=== PATIENT | female | born 1950 | race Caucasian/White ===

== ENCOUNTER 2024-04-14 19:59 | Inpatient (IN) | payer MEDICARE, OTHER ==
[~2024-04-14] VITALS: Ht 157.5 cm; Wt 64.0 kg
[2024-04-14] MEDS: KETOROLAC 30MG/ML VIAL IM ONE (20:15)
[2024-04-14] MEDS: HYDROCODONE/ACETAMINOPHEN 5/325MG TABLET PO ONE (20:15)
[2024-04-14] MEDS ORDERED: IBUP-2029 MT (22:10)
[2024-04-14] MEDS: HYDROCODONE/ACETAMINOPHEN 5/325MG TABLET PO SCH (22:49)
[2024-04-14] MEDS: KETOROLAC 30MG/ML VIAL IM SCH (22:49)
[2024-04-15 00:34] LABS: BASOPHILS % 0.9 % (0.0-2.0); EOSINOPHILS % 2.2 % (0.0-5.0); HEMATOCRIT. 34.3 % (36.0-48.0); HEMOGLOBIN. 11.5 g/dL (12.0-16.0); LYMPHOCYTES % 28.6 % (20.0-50.0); MEAN CORPUSCULAR HEMOGLOBIN 29.3 pg (28.0-32.0); MEAN CORPUSCULAR HGB CONC 33.5 g/dL (31.0-37.0); MEAN CORPUSCULAR VOLUME 87.7 fL (81.0-99.0); MEAN PLATELET VOLUME 8.2 fl (7.4-10.4); MONOCYTES % 8.7 % (2.0-8.0); NEUTROPHILS % 59.6 % (40.0-76.0); PLATELET 253 x1000/uL (130-400); RED BLOOD CELL COUNT 3.91 mill/uL (4.2-5.4); RED CELL DISTRIBUTION WIDTH 15.1 % (11.6-14.6); WHITE BLOOD COUNT 7.9 x1000/uL (4.5-11.0)
[2024-04-15 00:51] LABS: CHLORIDE 108 mEq/L (98-107); POTASSIUM 3.5 mEq/L (3.5-5.1); SODIUM 143 mEq/L (136-145)
[2024-04-15 00:52] LABS: CARBON DIOXIDE 29 mEq/L (21-32)
[2024-04-15 00:57] LABS: CREATININE 0.7 mg/dL (0.6-1.0); GLUCOSE 126 mg/dL (70-105); UREA NITROGEN BLOOD 8 mg/dL (9-23)
[2024-04-15 01:42] LABS: PROTHROMBIN TIME 10.9 sec (9.6-11.0)
[2024-04-15] MEDS ORDERED: ONDANSETRON HCL 4MG/2ML INJ IV PRN (02:15)
[2024-04-15] MEDS ORDERED: CLONIDINE 0.1MG TABLET PO PRN (02:15)
[2024-04-15] MEDS ORDERED: DEXTROSE 50% WATER 50ML SYRINGE IV PRN (02:15)
[2024-04-15] MEDS ORDERED: IPRATROPIUM/ALBUTEROL 0.5-3(2.5)MG/3ML NEB HHN PRN (02:15)
[2024-04-15] MEDS ORDERED: MAGNESIUM/ALUMINUM HYDROXIDE/SIMETHICONE 30ML UDC PO PRN (02:15)
[2024-04-15] MEDS: METOPROLOL SUCCINATE 50MG ER TABLET PO SCH (02:30)
[2024-04-15] MEDS: EMPAGLIFLOZIN 10MG TABLET PO SCH (09:00)
[2024-04-15 10:16] VITALS: BP 138/84; PULSE 75; RESP 18; TEMP 36.8
[2024-04-15] MEDS: INSULIN LISPRO 100 UNITS/ML SUBCUT SCH (12:37)
[2024-04-15] MEDS: BLOOD SUGAR DIAGNOSTIC STRIP TEST SCH (12:37)
[2024-04-15] MEDS: HYDROCODONE/ACETAMINOPHEN 5/325MG TABLET PO PRN (13:54)
[2024-04-15 19:05] LABS: BASOPHILS % 1.1 % (0.0-2.0); EOSINOPHILS % 2.3 % (0.0-5.0); HEMATOCRIT. 34.2 % (36.0-48.0); HEMOGLOBIN. 11.1 g/dL (12.0-16.0); LYMPHOCYTES % 29.6 % (20.0-50.0); MEAN CORPUSCULAR HEMOGLOBIN 28.9 pg (28.0-32.0); MEAN CORPUSCULAR HGB CONC 32.6 g/dL (31.0-37.0); MEAN CORPUSCULAR VOLUME 88.7 fL (81.0-99.0); MEAN PLATELET VOLUME 8.7 fl (7.4-10.4); MONOCYTES % 9.2 % (2.0-8.0); NEUTROPHILS % 57.8 % (40.0-76.0); PLATELET 253 x1000/uL (130-400); RED BLOOD CELL COUNT 3.85 mill/uL (4.2-5.4); RED CELL DISTRIBUTION WIDTH 15.2 % (11.6-14.6); WHITE BLOOD COUNT 6.7 x1000/uL (4.5-11.0)
[2024-04-15 19:08] LABS: CHLORIDE 107 mEq/L (98-107); POTASSIUM 3.6 mEq/L (3.5-5.1); SODIUM 143 mEq/L (136-145)
[2024-04-15 19:09] LABS: CARBON DIOXIDE 27 mEq/L (21-32)
[2024-04-15 19:10] LABS: CALCIUM 9.1 mg/dL (8.7-10.4)
[2024-04-15 19:14] LABS: CREATININE 0.8 mg/dL (0.6-1.0); GLUCOSE 159 mg/dL (70-105); UREA NITROGEN BLOOD 11 mg/dL (9-23)
[2024-04-15 19:16] LABS: CREATINE KINASE 72 IU/L (34-145)
[2024-04-15 19:20] LABS: THYROID STIMULATING HORMONE 1.12 uIU/mL (0.55-4.78)
[2024-04-15 20:00] VITALS: BP 115/63; PULSE 88; RESP 18; TEMP 36; O2SAT 97
[2024-04-15] MEDS: FAMOTIDINE 20MG TABLET PO SCH (20:32)
[2024-04-15] MEDS: ATORVASTATIN CALCIUM 40MG TABLET PO SCH (20:33)
[2024-04-15] MEDS: ACETAMINOPHEN 325MG TABLET PO PRN (20:33)
[2024-04-15] MEDS: INSULIN GLARGINE 100 UNITS/ML SUBCUT SCH (21:21)
[2024-04-16] VITALS: BP 129/64; PULSE 82; RESP 18; TEMP 36.3; O2SAT 97
[2024-04-16 00:03] LABS: CREATINE KINASE 66 IU/L (34-145)
[2024-04-16 04:00] VITALS: BP 126/62; PULSE 85; RESP 20; TEMP 35.7; O2SAT 95
[2024-04-16 08:00] VITALS: BP 144/68; PULSE 81; RESP 19; TEMP 36.4; O2SAT 97
[2024-04-16 12:00] VITALS: BP 140/70; PULSE 80; RESP 18; TEMP 36.3; O2SAT 96
[2024-04-16 16:00] VITALS: BP 149/69; PULSE 79; RESP 18; TEMP 36.1; O2SAT 98
[2024-04-16 20:00] VITALS: BP 150/79; PULSE 79; RESP 18; TEMP 36.7; O2SAT 96
[2024-04-17] VITALS: BP 146/84; PULSE 84; RESP 18; TEMP 37.1; O2SAT 97
[2024-04-17 04:00] VITALS: BP 138/86; PULSE 90; RESP 18; TEMP 36.6; O2SAT 98
[2024-04-17 08:00] VITALS: BP 137/60; PULSE 83; RESP 18; TEMP 36.4; O2SAT 98
[2024-04-17] MEDS ORDERED: IBUP-2029 MT (08:25)
[2024-04-17 12:00] VITALS: BP 135/69; PULSE 80; RESP 18; TEMP 36.2; O2SAT 98
[2024-04-17 16:00] VITALS: BP 127/70; PULSE 81; RESP 17; TEMP 36.2; O2SAT 100
[2024-04-17 20:00] VITALS: BP 154/78; PULSE 87; RESP 19; TEMP 36.8; O2SAT 97
[2024-04-18] VITALS: BP 151/76; PULSE 79; RESP 19; TEMP 36.7; O2SAT 96
[2024-04-18 04:00] VITALS: BP 142/88; PULSE 79; RESP 19; TEMP 37.1; O2SAT 98
[2024-04-18 08:00] VITALS: BP 158/77; PULSE 83; RESP 18; TEMP 35.7; O2SAT 95
[2024-04-18 10:01] VITALS: BP 140/70; PULSE 83; TEMP 97.2; O2SAT 96
== END 2024-04-18 15:08 | disposition home health service (06) | DRG 563 ==
LOC: ER 19:59 → 6EST 23:52
PROVIDERS: ADMIT Internal Medicine; ATTEND Internal Medicine
DX: S82.001A Unspecified fracture of right patella, initial encounter for closed fracture (principal); E11.9 Type 2 diabetes mellitus without complications; E78.5 Hyperlipidemia, unspecified; I10 Essential (primary) hypertension; D64.9 Anemia, unspecified; R53.81 Other malaise; M25.461 Effusion, right knee; J45.909 Unspecified asthma, uncomplicated; Z79.4 Long term (current) use of insulin; Z79.84 Long term (current) use of oral hypoglycemic drugs; Z79.899 Other long term (current) drug therapy; W01.0XXA Fall on same level from slipping, tripping and stumbling without subsequent striking against object, initial encounter; Y93.01 Activity, walking, marching and hiking; Y92.89 Other specified places as the place of occurrence of the external cause; Y99.8 Other external cause status
CPT/HCPCS: 36415; 73564; 73700; 80048; 82550; 83036; 84443; 85025; 86850; 86900; 97116; 97162; 97166; 97535; 99285; A4606; J1815; J1885; J2405